=== PATIENT | female | born 1950 | race Caucasian/White ===

== ENCOUNTER → 2016-12-05 | Outpatient (CLI) | payer MEDICARE, OTHER ==
[~2016-12-05] MED LIST: IOHEXOL 240 MG/ML 50ML VIAL. ONE; IOHEXOL 300 MG/ML 75 ML VIAL. IV ONE
--- NOTE | 2016-12-05 13:28 | RAD ---
Examination: Ultrasound left breast History: History of left breast pain, lumpectomy with radiation Comparison: None available Findings: Ultrasound the left breast throughout demonstrated no definite evidence of mass identified Impression: No obvious evidence of mass identified BI-RADS Category 1. Negative exam. Recommend follow-up mammogram.
--- NOTE | 2016-12-05 14:19 | RAD ---
Examination: CT of the abdomen pelvis with IV and oral contrast History history of abdominal pain, bloating, nausea Comparison: 01/15/2007 Technique: Axial CT images of the abdomen pelvis were performed with oral and IV contrast. Coronal and sagittal reformats are performed PQRS Compliance Statement: One or more of the following individualized dose reduction techniques were utilized for this examination: 1. Automated exposure control 2. Adjustment of the mA and/or kV according to patient size 3. Use of iterative reconstruction technique Findings: The visualized bibasal lungs grossly appears unremarkable. No evidence of free air identified in the abdomen. There is mild decreased attenuation noted throughout the liver likely hepatic steatosis. The visualized spleen, adrenals grossly appears unremarkable. Cholecystectomy clips are identified. The stomach is mildly distended. Prominent appearing common bile duct likely post cholecystectomy changes. The visualized pancreas grossly appears unremarkable. Few nonspecific distended proximal small bowel loops. The appendix is not identified. There is mild diffuse thickening of the hepatic flexure and proximal portion of the transverse colon. Feces and gas noted throughout the colon. Urinary bladder is mildly distended. The bilateral kidneys enhance symmetrically. Severe aortic atherosclerosis. Mild degenerative changes throughout the lumbar spine. Impression: 1. There is mild thickened appearance of the wall of the ascending colon at the hepatic flexure and in the proximal transverse colon. Underlying mucosal pathology such as neoplasm is not completely excluded. Recommend colonoscopy evaluation. 2. Mild hepatic steatosis. 3. Cholecystectomy changes. 4. Few nonspecific distended proximal small bowel loops.
== END | disposition home or self-care (01) ==
LOC: CT 11:54
PROVIDERS: ATTEND Nurse Practitioner Family
DX: K76.0 Fatty (change of) liver, not elsewhere classified (principal); N64.4 Mastodynia; R14.0 Abdominal distension (gaseous); Z90.49 Acquired absence of other specified parts of digestive tract
CPT/HCPCS: 74177; 76641; Q9966; Q9967

== ENCOUNTER → 2017-01-06 | Outpatient (CLI) | payer MEDICARE, BC, OTHER ==
--- NOTE | 2017-01-06 15:53 | RAD ---
Indication abdominal pain and bloating. In anticipation of a small bowel series a preliminary film of the abdomen was obtained. The preliminary film is unremarkable. Barium was administered orally and followed through the small bowel to the large bowel. 3 spot fluoroscopic images were obtained. Fluoroscopy time associated with the examination was 30 seconds. Several diverticula are seen off the sweep of the duodenum. The jejunal loops appear normal. No mass or stricture is seen. Ileal loops also appear unremarkable. No abnormality is seen in the terminal ileum. IMPRESSION: Normal small bowel series
== END | disposition home or self-care (01) ==
LOC: RAD 09:53
PROVIDERS: ATTEND Internal Medicine Gastroenterology
DX: K57.10 Diverticulosis of small intestine without perforation or abscess without bleeding (principal); R14.0 Abdominal distension (gaseous)
CPT/HCPCS: 74250

== ENCOUNTER → 2017-01-15 | Outpatient (CLI) | payer MEDICARE, BC, OTHER ==
[~2017-01-15] MED LIST changes: -IOHEXOL 240 MG/ML 50ML VIAL. ONE
[2017-01-15 11:19] LABS: CREATININE 0.6 mg/dL (0.6-1.0)
--- NOTE | 2017-01-15 12:04 | RAD ---
Examination: CT angiography abdomen History: History of abdominal pain with bloating Comparison: 12/05/2016 Technique: Axial CT angiographic images of the abdomen was performed with IV contrast. Coronal and sagittal 3-D MIP reformats are performed. 3-D volumetric reformats were performed. PQRS Compliance Statement: One or more of the following individualized dose reduction techniques were utilized for this examination: 1. Automated exposure control 2. Adjustment of the mA and/or kV according to patient size 3. Use of iterative reconstruction technique Findings: Patchy bibasal lung atelectasis. No evidence of free air identified. There is mild diffuse decreased attenuation noted throughout the liver likely hepatic steatosis. The visualized spleen, adrenals grossly appears unremarkable. The visualized pancreas grossly appears unremarkable. Mild prominent appearing common bile duct likely postcholecystectomy changes. The stomach is mildly distended. The visualized small bowel grossly appears unremarkable. Moderate aortic atherosclerosis. The visualized celiac artery, superior mesenteric artery, inferior mesenteric artery are patent. The bilateral renal arteries are patent. Mild atherosclerotic calcifications identified at the origin of the bilateral renal arteries. The visualized bilateral common iliac arteries demonstrate moderate atherosclerotic calcifications. Moderate degenerative changes identified in the thoracolumbar spine. Impression: 1. Moderate aortic atherosclerosis. 2. No evidence of occlusion of the celiac, superior mesenteric or inferior mesenteric arteries, or bilateral renal arteries. 3. Patchy bibasal lung airspace opacities likely atelectasis or infiltrates. 4. Mild hepatic steatosis.
== END | disposition home or self-care (01) ==
LOC: CT 10:49
PROVIDERS: ATTEND Internal Medicine Gastroenterology
DX: K31.89 Other diseases of stomach and duodenum (principal); I70.0 Atherosclerosis of aorta; J98.11 Atelectasis
CPT/HCPCS: 36415; 74175; 82565; 84520; Q9967

== ENCOUNTER → 2017-08-07 | Outpatient (CLI) | payer MEDICARE, BC, OTHER ==
--- NOTE | 2017-08-07 15:03 | RAD ---
DATE: 08/07/2017 EXAM: MAMMO WILLIAM SCREENING BILATERAL HISTORY: Previous left breast cancer COMPARISON: 09/18/2015 This study was interpreted with the benefit of Computerized Aided Detection (CAD). The breast parenchyma is primarily fatty replaced. Breast parenchyma level density A. FINDINGS: 2-D and 3-D tomosynthesis imaging was performed in CC and MLO projections. On left CC tomogram #11 there is a 4 mm triangular-shaped nodular opacity, not evident on the previous study. It appears to lie at the 6:00 location. No other new or enlarging breast densities are seen. Benign type calcifications are present. No suspicious microcalcifications have developed. IMPRESSION: Possible developing small left breast nodule as described above. Sonographic evaluation is suggested. BI-RADS CATEGORY: 0 INCOMPLETE: NEEDS ADDITIONAL IMAGING EVALUATION AND/OR PRIOR MAMMOGRAMS FOR COMPARISON. RECOMMENDED FOLLOW-UP: ADD ADDITIONAL IMAGING PQRS compliance statement: Patient information was entered into a reminder system with a target due date for the next mammogram. Mammography is a sensitive method for finding small breast cancers, but it does not detect them all and is not a substitute for careful clinical examination. A negative mammogram does not negate a clinically suspicious finding and should not result in delay in biopsying a clinically suspicious abnormality. "Our facility is accredited by the [employer] Mammography [employer]."
== END | disposition home or self-care (01) ==
LOC: MAMMO 10:58
PROVIDERS: ATTEND Nurse Practitioner Family
DX: Z12.31 Encounter for screening mammogram for malignant neoplasm of breast (principal); Z85.3 Personal history of malignant neoplasm of breast
CPT/HCPCS: 77063; 77067

== ENCOUNTER → 2017-08-13 | Outpatient (CLI) | payer MEDICARE, BC, OTHER ==
--- NOTE | 2017-08-13 11:24 | RAD ---
Left breast ultrasound History: Abnormal mammogram. History of left breast cancer status post lumpectomy. Comparison: Screening 3-D mammogram August 07, 2017. Findings: Ultrasound imaging was performed of the left breast from 5:00 to 7:00. No solid or cystic masses are identified. No correlate to mammographic abnormality is seen. Impression: No sonographic correlate is identified to correspond to the mammographic abnormality. Recommend follow-up diagnostic 3-D left mammogram in 6 months. BI-RADS CATEGORY: 3 PROBABLY BENIGN FINDING(S)-SHORT INTERVAL FOLLOW-UP SUGGESTED RECOMMENDED FOLLOW-UP: 6M 6 MONTH FOLLOW-UP
== END | disposition home or self-care (01) ==
LOC: US 09:36
PROVIDERS: ATTEND Nurse Practitioner Family
DX: R92.8 Other abnormal and inconclusive findings on diagnostic imaging of breast (principal); Z85.3 Personal history of malignant neoplasm of breast
CPT/HCPCS: 76641

== ENCOUNTER → 2017-08-25 | Outpatient (CLI) | payer MEDICARE, BC, OTHER ==
--- NOTE | 2017-08-25 19:14 | RAD ---
EXAM: CT ANGIOGRAPHY OF THE CHEST WITH AND WITHOUT INTRAVENOUS CONTRAST. HISTORY: Cough, shortness of breath, chest pain with breathing. TECHNIQUE: Computed tomographic angiography of the chest was performed before and after the intravenous administration of 73 mL Omnipaque 300. 3-D maximum intensity projections were also performed. COMPARISON: None. FINDINGS: Images of the upper abdomen reveal hypoattenuation of the hepatic parenchyma consistent with diffuse hepatic steatosis. The gallbladder appears to be absent. The common duct is moderately dilated at 13 mm. No cause for distal obstruction is included. There is a small to moderate hiatal hernia. Bone windows reveal no suspicious lesions. No pulmonary emboli are identified. There is no aortic dissection or aneurysm. There are no pathologically enlarged mediastinal or axillary lymph nodes. There is no pleural or pericardial effusion. The heart is mildly enlarged. Calcified mediastinal lymph nodes are likely secondary to old granulomatous disease. There is mild to moderate centrilobular emphysema in the apices. Bronchial wall thickening indicates acute or chronic bronchitis. There is mild dependent atelectasis. There are no acute infiltrates. IMPRESSION: 1. No pulmonary embolism. 2. Mild cardiomegaly. 3. Mild to moderate centrilobular emphysema. Bronchial wall thickening indicates acute or chronic bronchitis. 4. Small to moderate hiatal hernia. 5. Diffuse hepatic steatosis. 6. Moderate extrahepatic biliary dilatation status post cholecystectomy. Correlate for cholestasis to assess significance. *One or more of the following individualized dose reduction techniques were utilized for this examination: 1. Automated exposure control. 2. Adjustment of the mA and/or kV according to patient size. 3. Use of iterative reconstruction technique. Electronically signed by: Ernie Shepherd MD (08/25/2017 7:11 PM) [facility]
== END | disposition home or self-care (01) ==
LOC: CT 15:58
PROVIDERS: ATTEND Nurse Practitioner Family
DX: K44.9 Diaphragmatic hernia without obstruction or gangrene (principal); J43.2 Centrilobular emphysema; K76.0 Fatty (change of) liver, not elsewhere classified; I10 Essential (primary) hypertension; I51.7 Cardiomegaly; Z90.49 Acquired absence of other specified parts of digestive tract; Z87.891 Personal history of nicotine dependence
CPT/HCPCS: 71275; Q9967

== ENCOUNTER → 2018-02-11 | Outpatient (CLI) | payer MEDICARE, BC, OTHER ==
--- NOTE | 2018-02-17 09:49 | RAD ---
DATE: 02/11/2018 EXAM: MAMMO [facility] DIAG LT HISTORY: 6 month follow-up COMPARISON: 08/07/2017 This study was interpreted with the benefit of Computerized Aided Detection (CAD). Breast Density: FATTY The breast parenchyma is primarily fatty replaced. Breast parenchyma level density A. FINDINGS: 2-D and 3-D tomosynthesis imaging was performed in CC and MLO projections. There is a persistent 3-4 mm smooth nodule at the 6:00 location in the left breast as best demonstrated on CC tomosynthesis image #11. It has shown no definite change. No new or enlarging breast densities are seen. Minimal benign type calcification is present. No suspicious microcalcifications have developed. IMPRESSION: Unchanged small left breast nodule. Further mammographic surveillance consisting of bilateral mammography in 6 months is suggested. BI-RADS CATEGORY: 3 PROBABLY BENIGN FINDING(S)-SHORT INTERVAL FOLLOW-UP SUGGESTED RECOMMENDED FOLLOW-UP: 6M 6 MONTH FOLLOW-UP PQRS compliance statement: Patient information was entered into a reminder system with a target due date for the next mammogram. Mammography is a sensitive method for finding small breast cancers, but it does not detect them all and is not a substitute for careful clinical examination. A negative mammogram does not negate a clinically suspicious finding and should not result in delay in biopsying a clinically suspicious abnormality. "Our facility is accredited by the [employer] Mammography Program."
== END | disposition home or self-care (01) ==
LOC: MAMMO 13:44
PROVIDERS: ATTEND Nurse Practitioner Family
DX: N63.23 Unspecified lump in the left breast, lower outer quadrant (principal); Z85.3 Personal history of malignant neoplasm of breast; Z90.12 Acquired absence of left breast and nipple
CPT/HCPCS: 77065; G0279; 77061

== ENCOUNTER → 2018-07-03 | Outpatient (CLI) | payer MEDICARE, BC, OTHER ==
--- NOTE | 2018-07-04 12:14 | RAD ---
CT of the left wrist. HISTORY: Fall 2 days ago pain in metacarpals and wrist Axial CT images were obtained to the wrist. Sagittal and coronal reconstructed images were reviewed. There is soft tissue swelling at the wrist and radiocarpal joint. There is no metacarpal fracture. There is no fracture identified at the carpal bones. The distal radius and ulna appear intact. There is no other acute osseous abnormality noted. IMPRESSION: 1. No fracture noted in the left wrist. PQRS Compliance Statement: One or more of the following individualized dose reduction techniques were utilized for this examination: 1. Automated exposure control 2. Adjustment of the mA and/or kV according to patient size 3. Use of iterative reconstruction technique Electronically signed by: Samy Walker MD (07/04/2018 12:11 PM) [facility]
== END | disposition home or self-care (01) ==
LOC: CT 12:59
PROVIDERS: ATTEND Nurse Practitioner Family
DX: M25.432 Effusion, left wrist (principal)
CPT/HCPCS: 73200

== ENCOUNTER → 2018-08-10 | Outpatient (CLI) | payer MEDICARE, BC, OTHER ==
--- NOTE | 2018-08-10 13:47 | RAD ---
DATE: 08/10/2018 EXAM: MAMMO [facility] DIAG BILAT HISTORY: 6 month follow-up, previous left breast malignancy COMPARISON: 02/11/2018, 08/07/2017 This study was interpreted with the benefit of Computerized Aided Detection (CAD). Breast Density: FATTY The breast parenchyma is primarily fatty replaced. Breast parenchyma level density A. FINDINGS: 2-D and 3-D tomosynthesis imaging was performed in CC and MLO projections. A small 4 mm nodule is again noted at the 6:00 retroareolar region of the left breast. It is best seen on left CC tomosynthesis images #13 and shows no change since the previous study. No new or enlarging breast densities are seen. Posttherapeutic changes are again noted on the left. Benign type calcifications are present. No suspicious microcalcifications have developed. IMPRESSION: Stable mammograms with a probably benign nodule in the left breast. Follow-up left mammography in 6 months and bilateral mammography at one year is suggested. BI-RADS CATEGORY: 3 PROBABLY BENIGN FINDING(S)-SHORT INTERVAL FOLLOW-UP SUGGESTED RECOMMENDED FOLLOW-UP: 6M 6 MONTH FOLLOW-UP PQRS compliance statement: Patient information was entered into a reminder system with a target due date for the next mammogram. Mammography is a sensitive method for finding small breast cancers, but it does not detect them all and is not a substitute for careful clinical examination. A negative mammogram does not negate a clinically suspicious finding and should not result in delay in biopsying a clinically suspicious abnormality. "Our facility is accredited by the [employer] Mammography Program."
== END | disposition home or self-care (01) ==
LOC: MAMMO 12:46
PROVIDERS: ATTEND Nurse Practitioner Family
DX: N63.23 Unspecified lump in the left breast, lower outer quadrant (principal); N64.89 Other specified disorders of breast; Z85.3 Personal history of malignant neoplasm of breast
CPT/HCPCS: 77066; G0279; 77062

== ENCOUNTER → 2020-04-05 | Outpatient (CLI) | payer MEDICARE, BC, OTHER ==
--- NOTE | 2020-04-05 20:09 | RAD ---
Examination: Right Lower Extremity Venous Doppler Ultrasound History: Right leg pain Comparison: None Procedure: Jane scale, color flow 2D and spectal waveform analysis images are obtained with and witho ut compression in the area of the common femoral vein, superficial femoral vein - femoral vein juncti on, main femoral vein (superficial femoral vein) and popliteal vein. Veins of the proximal calf are a lso imaged. Findings: There is normal duplex flow, color flow and compressibility of all visualized vein segments. No evide nce of deep venous thrombus is present. Impression: No evidence of DVT in the right lower extremity venous system. Electronically signed by: Anthony Garrido MD (04/05/2020 8:06 PM) [id number]
== END ==
LOC: US 16:01
PROVIDERS: ATTEND Family Medicine
DX: M79.661 Pain in right lower leg (principal)
CPT/HCPCS: 93971